=== PATIENT | female | born 1965 | race Two or more races ===

== ENCOUNTER 2025-06-10 09:04 | Emergency (ER) | payer MEDICAID, SELFPAY ==
[2025-06-10 09:25] VITALS: BP 142/78; PULSE 73; RESP 19; TEMP 36.8; O2SAT 95
--- NOTE | 2025-06-10 09:34 | XR_ITS ---
Examination: Foot, left, 3 views Technique: AP, oblique, lateral views foot, 3 views Date and time of exam: June 10, 2025, 0949 hours INDICATIONS: Spider bite to the foot 2 weeks ago with redness swelling and pain FINDINGS: Soft tissue swelling dorsum of the foot No opaque foreign body No cortical bone destruction 12 mm plantar bony calcaneal spur. Mild to moderate osteoarthritis first metatarsophalangeal joint IMPRESSION: Soft tissue swelling dorsum of the foot Negative for osteomyelitis
--- NOTE | 2025-06-10 09:36 | PD.EDRME ---
Rapid Medical Screening Exam RME Arrival date/time: 06/10/25 09:04 59-year-old female presents to the emergency department complaint of infection to the left foot patient does report taking course of antibiotics patient reports initially she thought she was stung by a mosquito but developed an infection patient reports symptoms have worsened Chief Complaint: Ankle/Foot Injury Time Seen by Provider: 06/10/25 09:12 Vital signs: Vital Signs Temperature 98.3 F 06/10/25 09:25 Pulse Rate 73 06/10/25 09:25 Respiratory Rate 19 06/10/25 09:25 Blood Pressure 142/78 H 06/10/25 09:25 Pulse Oximetry (%) 95 06/10/25 09:25 Oxygen Delivery Method Room Air 06/10/25 09:25
[2025-06-10 09:56] LABS: Lactate (Lactic Acid) 1.1 mMol/L (0.4-2.0)
[2025-06-10 09:58] LABS: Basophils # (Auto) 0.1 Thou/mm3 (0.0-0.2); Basophils % (Auto) 1 % (0-2.5); Eosinophils # (Auto) 0.2 Thou/mm3 (0.0-0.5); Eosinophils % (Auto) 3 % (0-10); Hematocrit 36.5 % (36.0-46.0); Hemoglobin 11.9 g/dL (12.0-16.0); Immature Granulocytes Auto 0.01 Thou/mm3 (0.00-0.00); Lymphocytes # (Auto) 1.8 Thou/mm3 (1.0-4.8); Lymphocytes % (Auto) 34 % (10-50); Mean Corpuscular HGB Conc 32.6 g/dl (31.0-37.0); Mean Corpuscular Hemoglobin 31.1 pg (25.0-35.0); Mean Corpuscular Volume 95 fL (80-100); Monocytes # (Auto) 0.6 Thou/mm3 (0.0-0.8); Monocytes % (Auto) 12 % (0-12); Neutrophils # (Auto) 2.6 Thou/mm3 (1.8-7.7); Neutrophils % (Auto) 50 % (37-80); Nucleated Red Blood Cell # 0.00 Thou/mm3 (0.00-0.00); Nucleated Red Blood Cell % 0 /100 WBC (0); Platelet Count 293 Thou/mm3 (140-440); RDW Standard Deviation 44.4 fL (36.4-46.3); Red Blood Count 3.83 Miln/mm3 (4.00-5.20); White Blood Count 5.1 Thou/mm3 (3.6-11.0)
[2025-06-10 10:13] LABS: INR 1.0 (0.9-1.3); Prothrombin Time 11.1 Seconds (9.0-12.2)
[2025-06-10 10:28] LABS: Alanine Aminotransferase 8 U/L (10-49); Albumin, Serum 4.3 gm/dL (3.4-4.8); Albumin/Globulin Ratio 1.3 (1.2-2.2); Alkaline Phosphatase 102 U/L (46-116); Anion Gap 11 (7-16); Aspartate Amino Transferase 15 U/L (0-34); BUN/Creatinine Ratio 20 Ratio (12-20); Bilirubin,Total 0.9 mg/dL (0.3-1.2); Blood Urea Nitrogen 14 mg/dL (9-23); C-Reactive Protein 0.8 mg/dL (0.0-0.9); Calcium 9.9 mg/dL (8.3-10.6); Calcium (Corrected) 9.9 mg/dL (8.5-10.1); Carbon Dioxide 24.1 mMol/L (20.0-31.0); Chloride 105 mMol/L (98-107); Creatinine (Component) 0.7 mg/dL (0.6-1.3); Globulin 3.4 gm/dL (2.3-3.5); Glucose 90 mg/dL (74-106); Osmolality,Calculated 279 (275-295); Potassium 3.9 mMol/L (3.4-5.1); Procalcitonin < 0.04 ng/ml (0.0-0.49); Sodium 140 mMol/L (136-145); Total Protein 7.7 gm/dL (5.7-8.2); eGFR > 60 See Note
[2025-06-10 10:51] LABS: Sed Rate (ESR) 74 mm/hr (0-30)
--- NOTE | 2025-06-10 12:35 | PD.EDANKLE ---
Lower Extremity Injury RME/HPI General Chief Complaint: Ankle/Foot Injury Stated Complaint: Left foot swollen X 2 weeks Time Seen by Provider: 06/10/25 09:12 Arrival date/time: 06/10/25 09:04 RME / HPI RME / HPI Narrative: 59-year-old female presents to the emergency department complaint of infection to the left foot patient does report taking course of antibiotics patient reports initially she thought she was stung by a mosquito but developed an infection patient reports symptoms have worsened. Patient denies any fever. Denies any other complaints. Onset of symptoms this been ongoing for the last 2 weeks. Patient is ambulatory. This morning patient noticed puslike drainage. Related Data Previous Rx's ?Medication ?Instructions ?Recorded ibuprofen 600 mg tablet 600 mg PO Q6H #30 tabs 11/06/19 ibuprofen 600 mg tablet 600 mg PO Q6H #30 tabs 06/01/24 clindamycin HCl 300 mg capsule 300 mg PO Q6H #28 caps 06/10/25 Allergies Allergy/AdvReac Type Severity Reaction Status Date / Time No Known Allergies Allergy Verified 06/10/25 09:08 Review of Systems Review of Systems Narrative Review of Systems: Review of system reviewed and within normal limits except mentioned in HPI ED Exam Narrative Physical exam: VITAL SIGNS: Reviewed. GENERAL APPEARANCE: Alert and interactive, follows commands, no acute distress, morbidly obese HEAD AND FACE: Non-traumatic. ENT: PERRL, pink conjunctivitis, eyelid no trauma, Mucous membrane moist. NECK: Supple, nontender, no nuchal rigidity. CHEST: No tenderness, no crepitus, no paradoxical movement, no retractions. LUNGS: Clear, well ventilated, symmetric, no rales, no wheezing, no ronchi, no stridor, good breath sounds bilaterally. HEART: Regular rate, regular rhythm, no murmur, no gallops. ABDOMEN: Soft, positive bowel sounds, nondistended, no guarding, nontender, no rebound, no masses, RECTAL: Deferred. GENITAL: Deferred. NEUROLOGICAL: Gross motor function intact sensory function intact, Appropriate for age. MUSCULOSKELETAL: low back nontender, full range of motion. EXTREMITIES: Redness noted on the dorsum of the foot with 2 x 2 swelling, and puslike drainage, no necrosis noted, full range of motion. SKIN: Color pink, dry, no rash, no lacerations, no abrasions, no contusions. LYMPHATICS: Deferred. Course Quality Measures none Orders Category Date Time Status XR foot comp LT min 3V Stat Exams 06/10/25 09:34 Completed Blood Culture (Lab) Stat Lab 06/10/25 09:51 Received CBC Stat Lab 06/10/25 09:44 Completed CMP [Comprehensive Metabolic Panel] Stat Lab 06/10/25 09:44 Completed CRP [C-Reactive Protein] Stat Lab 06/10/25 09:44 Completed ESR [Sed Rate (ESR)] Stat Lab 06/10/25 09:44 Completed Lactic Acid [Lactate (Lactic Acid)] Stat Lab 06/10/25 09:50 Completed PT [Prothrombin Time with INR] Stat Lab 06/10/25 09:44 Completed Procalcitonin Stat Lab 06/10/25 09:44 Completed Vital Signs Vital signs: Vital Signs Temperature 98.3 F 06/10/25 09:25 Pulse Rate 73 06/10/25 09:25 Respiratory Rate 19 06/10/25 09:25 Blood Pressure 142/78 H 06/10/25 09:25 Pulse Oximetry (%) 95 06/10/25 09:25 Oxygen Delivery Method Room Air 06/10/25 09:25 Extremity Injury, Lower MDM Narrative MDM Narrative:: 59-year-old female presents to the emergency department complaint of infection to the left foot patient does report taking course of antibiotics patient reports initially she thought she was stung by a mosquito but developed an infection patient reports symptoms have worsened. Patient denies any fever. Denies any other complaints. Onset of symptoms this been ongoing for the last 2 weeks. Patient is ambulatory. This morning patient noticed puslike drainage. Patient's laboratory workup today came back with no sign of leukocytosis. X-ray of the foot also showed soft tissue swelling otherwise no osseous abnormality noted. Patient will be sent home on clindamycin and advised the patient to soak the foot with warm water with Epsom salt 3 times a day as needed and asked the PCP to refer to third mate patient agrees with the plan Patient appears nontoxic and hemodynamically stable .Decision to discharge the patient. The patient/family was given an opportunity to ask questions and understood their discharge instructions. Discharge instructions specifically included follow up provider and time frame, current and/or new medications and possible side effects, indications for sooner follow up or return to the emergency department, and the expected course of current diagnosis. Patient reports feeling better as well and giving evidence of significant clinical improvement, I believe patient is now a candidate for discharge. Patient data External records reviewed:: None Clinical information provided by:: patient and family Social determinants that could affect healthcare access:: none Patient has the following chronic illnesses:: None How is presenting disease/condition affected by chronic disease/condition?: no chronic disease Evaluation data The following diagnostics were reviewed and interpreted by me:: lab results and radiology exam(s) Lab and/or radiology exams considered but not ordered:: See results MDM Interpretation Summary: See results MDM Medications / Prescriptions Medications or Prescriptions considered but not ordered:: None Medication administrations:: None Consultations Consultation(s) initiated? (list below): No Diagnosis Extremity Injury, Lower Differential Diagnosis: puncture wound of foot and other (Foot cellulitis foot abscess) Most likely diagnosis given after review of the tests above:: Foot cellulitis/abscess draining Admission Indicated Admission indicated?: not indicated Admission Request Was there a request for admission?: No Disposition Plan Disposition Plan: Discharge Discharge Attestation Discharge Attestation: The patient and all family members were given an opportunity to ask questions and understood the discharge instructions. Discharge instructions specifically effects, indications for sooner follow up or return to the emergency department, and the expected course of current diagnosis. Patient condition: Stable Discharge Plan Plan Patient Disposition: HOME (Self Care) Discharge Disposition comment: Stable Prescriptions/Referrals Prescriptions/Med Rec: New clindamycin HCl 300 mg capsule 300 mg PO Q6H Qty: 28 0RF No Action ibuprofen 600 mg tablet 600 mg PO Q6H Qty: 30 0RF ibuprofen 600 mg tablet 600 mg PO Q6H Qty: 30 0RF Referrals: No Primary/Family,Physician [Primary Care Provider] - In 1 week Problem List Clinical Impression: Abscess or cellulitis of foot Patient/Caregiver Discharge Instructions Discharge Activity: activity as tolerated Education Materials: ED Cellulitis Additional Instructions: Thank you for the opportunity for serving you today. You are stable for discharged . You are advised to: Follow-up with your PCP in 1 to 2 days and asked for referral to third mate Return to ED for worsening of symptoms Increase oral fluids Take medication as prescribed Soak your foot with warm water with Epsom salt 3 times a day as needed Print Language: [place] Stand Alone Forms: Jodi Award Info., Patient Portal Info Letter PA/GLUING MACHINE OFFBEARER Supervising Physician YUNIEL/GLUING MACHINE OFFBEARER Supervising Physician: MD Malcolm
[2025-06-10] MEDS: ACETAMINOPHEN 500 MG TABLET 1000 MG PO (13:13)
== END 2025-06-10 13:26 | disposition home or self-care (01) ==
PROVIDERS: Nurse Practitioner Primary Care; Emergency Provider Family Medicine
DX: L02.612 Cutaneous abscess of left foot (principal); L03.116 Cellulitis of left lower limb
CPT/HCPCS: 36415; 73630; 80053; 83605; 84145; 85025; 85610; 85652; 86140; 87040; 99283; A9270